=== PATIENT | female | born 1940 | race Caucasian/White ===

== ENCOUNTER → 2017-06-20 | Outpatient (CLI) | payer MEDICARE, OTHER ==
[~2017-06-20] MED LIST: ADVA100A INH; ASPI81TA23 PO; CALC1TAB87 PO; CELE200C PO; CINN500C2 PO; GLUC500T4 PO; GLUCTAB6 PO; KRIL1CAP15 PO; LEVO.1 PO; LEVO100T4 PO; LUTE20CA PO; MIRA0.5T PO; MONT10TA2 PO; MULTTAB67 PO; NEXI40CA PO; NORC7.5T PO; PRIS50TA PO; PROT40TA PO; SIMV20 PO; SYMB80AE INH; VIIB40TA PO; XARE10TA PO; ZOCO20TA PO
[2017-06-20 14:03] LABS: AUTOMATED NEUTROPHIL # 4.1 TH/MM3 (1.8-7.7); BASOPHIL % 0.7 % (0.0-2.0); EOSINOPHIL # 0.2 TH/MM3 (0-0.4); HEMATOCRIT 35.5 % (35.0-46.0); HEMOGLOBIN 12.1 GM/DL (11.6-15.3); LYMPH % 22.6 % (9.0-44.0); LYMPHOCYTE # 1.4 TH/MM3 (1.0-4.8); MEAN CELL VOLUME 87.2 FL (80.0-100.0); MEAN CORPUSCULAR HEMOGLOBIN 29.7 PG (27.0-34.0); MEAN CORPUSCULAR HGB CONC 34.1 % (32.0-36.0); MEAN PLATELET VOLUME 7.9 FL (7.0-11.0); MONO % 8.5 % (0.0-8.0); MONOCYTE # 0.5 TH/MM3 (0-0.9); NEUT % 65.2 % (16.0-70.0); PLATELET COUNT 252 TH/MM3 (150-450); RED BLOOD COUNT 4.07 MIL/MM3 (4.00-5.30); RED CELL DISTRIBUTION WIDTH 13.8 % (11.6-17.2); WHITE BLOOD COUNT 6.3 TH/MM3 (4.0-11.0)
[2017-06-20 14:06] LABS: BACTERIA, URINE RARE /hpf; BILIRUBIN, URINE NEG (NEG); BLOOD, URINE NEG (NEG); GLUCOSE,URINE NEG (NEG); KETONE, URINE NEG (NEG); MUCUS URINE FEW /lpf (OCC); NITRITE,URINE NEG (NEG); URINE COLOR YELLOW (YELLW/STRAW); URINE LEUKOCYTE ESTERASE TRACE (NEG)
[2017-06-20 14:10] LABS: PROTHROMBIN TIME - PATIENT 10.5 SEC (9.8-11.6)
[2017-06-20 14:34] LABS: ALBUMIN 3.5 GM/DL (3.4-5.0); AST (GOT) 21 U/L (15-37); BICARBONATE 29.2 MEQ/L (21.0-32.0); BLOOD UREA NITROGEN 30 MG/DL (7-18); CALCIUM 9.2 MG/DL (8.5-10.1); CHLORIDE 108 MEQ/L (98-107); CREATININE 1.21 MG/DL (0.50-1.00); GLOMERULAR FILTRATION RATE 43 ML/MIN (>89); GLUCOSE,FASTING 77 MG/DL (74-99); SODIUM (NA) 142 MEQ/L (136-145)
[2017-06-20 14:37] LABS: ALKALINE PHOSPHATASE 78 U/L (45-117); ALT (GPT) 15 U/L (10-53); TOTAL BILIRUBIN ADULT 0.2 MG/DL (0.2-1.0); TOTAL PROTEIN 7.1 GM/DL (6.4-8.2)
[2017-06-20 15:01] LABS: WESTERGREN SEDIMENTATION RATE 39 mm/hr (0-30)
== END ==
LOC: CPRE 13:10
PROVIDERS: ATTEND Orthopaedic Surgery Sports Medicine
DX: Z01.812 Encounter for preprocedural laboratory examination (principal); M25.50 Pain in unspecified joint; M17.11 Unilateral primary osteoarthritis, right knee; Z79.01 Long term (current) use of anticoagulants
CPT/HCPCS: 36415; 80053; 81001; 85025; 85610; 85652; 85730

== ENCOUNTER 2017-07-04 07:34 | Inpatient (IN) | payer MEDICARE, OTHER ==
[~2017-07-04] VITALS: Ht 162.6 cm; Wt 73.8 kg
[~2017-07-04 07:34] MED LIST changes: -GLUCTAB6 PO; -LEVO100T4 PO; -NEXI40CA PO; -NORC7.5T PO; -SIMV20 PO; -SYMB80AE INH; -VIIB40TA PO; -XARE10TA PO
[2017-07-04] MEDS ORDERED: ROPIVACAINE PERI-ARTICULAR INJECTION. P-ARTICULR SCH ×5 (08:00)
[2017-07-04] MEDS ORDERED: VANCOMYCIN 1000 MG/NS 250 ML (for <70 kg) IV SCH ×2 (08:00)
[2017-07-04] MEDS ORDERED: SODIUM CHLORID 0.9% 500 ML IV PRN (08:00)
[2017-07-04] MEDS ORDERED: METOPROLOL TARTRATE 25 MG TAB PO PRN (08:00)
[2017-07-04] MEDS ORDERED: POVIDONE IODINE 7.5% SCRUB 118 ML BOTTLE TOPICAL SCH (08:00)
[2017-07-04] MEDS ORDERED: CHLORHEXIDINE GLUCONATE 2 % 1 PACK (2 CLOTHS) TOPICAL PRN (08:00)
[2017-07-04] MEDS ORDERED: POVIDONE IODINE 5% (ANTISEPSIS KIT) 4 APPLICATIONS EACH NARE PRN (08:00)
[2017-07-04] MEDS ORDERED: LACTATED RINGER'S 1000 ML IV PRN (08:00)
[2017-07-04] MEDS ORDERED: CHLORHEXIDINE GLUCONATE 4% SOLN 120 ML BTL TOPICAL SCH (08:00)
[2017-07-04] MEDS ORDERED: ceFAZolin 2 GM PREMIX 50 ML IV SCH (08:00)
[2017-07-04] MEDS ORDERED: TRANEXAMIC PERI-ARTICULAR 3,000 MG/NS 100 ML P-ARTICULR SCH ×2 (08:00)
[2017-07-04] MEDS ORDERED: DEXAMETHASONE SOD PHOS 4 MG/ML VIAL IV SCH (08:15)
[2017-07-04] MEDS ORDERED: TRANEXAMIC ACID INJ 1,107 MG in SODIUM CHLORIDE 0.9% INJ 100 ML IV SCH (09:00)
[2017-07-04] MEDS ORDERED: BUPIVACAINE LIPOSOME PF 1.3% 20 ML VIAL ONE (09:31)
[2017-07-04] MEDS ORDERED: MIDAZOLAM HCL 2 MG/2 ML VIAL ONE (09:32)
[2017-07-04] MEDS ORDERED: ASPI81CH6 CHEW (10:11)
[2017-07-04] MEDS ORDERED: HYDR-3288 PO (10:11)
[2017-07-04] MEDS ORDERED: GENTAMICIN SULFATE 80 MG/2 ML VIAL ONE (10:33)
[2017-07-04] MEDS ORDERED: ACETAMINOPHEN 1000 MG/100 ML 100 ML IV ONE (10:44)
[2017-07-04] MEDS ORDERED: PROPOFOL 200 MG/20 ML AMP IV ONE (12:00)
[2017-07-04] MEDS ORDERED: PHENYLEPH/NS 1000 MCG/10 ML SYR IV ONE (12:00)
[2017-07-04] MEDS ORDERED: GLYCOPYRROLATE 1 MG/5 ML SYRINGE IV PUSH ONE (12:00)
[2017-07-04] MEDS ORDERED: NEOSTIGMINE 5 MG/5 ML SYRINGE IV PUSH ONE (12:00)
[2017-07-04] MEDS ORDERED: LIDOCAINE HCL 1% PF 5 ML SYRINGE OTHER ONE (12:00)
[2017-07-04] MEDS ORDERED: ROCURONIUM INJ 50 MG/5 ML SYRINGE IV PUSH ONE (12:00)
[2017-07-04] MEDS ORDERED: ONDANSETRON HCL 4 MG/2 ML VIAL IV ONE (12:00)
[2017-07-04] MEDS ORDERED: ACETAMINOPHEN/HYDROcodone 325 MG/7.5 MG TAB PO PRN (12:30)
[2017-07-04] MEDS: SODIUM CHLOR 0.9% 1000 ML INJ 1,000 ML IV SCH ×2 (12:45→22:45)
[2017-07-04] MEDS ORDERED: diphenhydrAMINE HCL 50 MG/ML VIAL IV PUSH PRN (12:45)
[2017-07-04] MEDS ORDERED: DO NOT ADM ANY ANTICOAGULANT DRUGS PRN (12:56)
[2017-07-04] MEDS ORDERED: Post-op Orders (for Pharmacy) XX ONE (13:00)
[2017-07-04] MEDS ORDERED: ONDANSETRON HCL 4 MG/2 ML VIAL IVP PRN (13:00)
[2017-07-04] MEDS ORDERED: *morphine SULFATE 4 MG/ML PERIprocedure ONLY ONE ×3 (13:06→13:26)
[2017-07-04] MEDS ORDERED: MORPHINE SULFATE 4 MG/ML INJ IV PUSH PRN (13:30)
--- NOTE | 2017-07-04 13:38 | RADRPT ---
EXAM DATE/TIME: 07/04/2017 13:14 [place] COMPARISON: No previous studies available for comparison. INDICATIONS : Post knee replacement. MEDICAL HISTORY : No pertinent medical history SURGICAL HISTORY : Total knee replacement, right. ENCOUNTER: Initial ACUITY: 1 day PAIN SCORE: 2/10 LOCATION: Right knee. FINDINGS: The patient is status post right total knee arthroplasty. The tibial femoral components appear well s eated. Surgical drain and subcutaneous air are noted consistent with postsurgical changes. CONCLUSION: Postsurgical changes are noted. Tucker Bloom MD on July 04, 2017 at 13:36 Board Certified Radiologist. This report was verified electronically.
[2017-07-04] MEDS ORDERED: BISACODYL 10 MG SUPP RECTAL PRN (14:00)
[2017-07-04] MEDS ORDERED: cloNIDine HCL 0.1 MG TAB PO PRN (14:30)
[2017-07-04 14:57] VITALS: O2SAT 98
[2017-07-04] MEDS: ACETAMINOPHEN/HYDROcodone 325 MG/7.5 MG TAB PO PRN ×3 (15:30→23:35)
--- NOTE | 2017-07-04 15:47 | PD.CONS ---
[facility] Consult Requested By Dr. Osei Reason for Consult Medical management Primary Care Physician Khoa Vazquez DO Diagnoses: History of Present Illness The pt is a 76 year old female with a past medical history of osteoarthritis, COPD and sarcoidosis who is presenting to the hospital for an elective right knee replacement. The patient states that she has had problems with her right knee for the past 2 years. She was told that it was bone on bone. She has been limping around and has not been using a cane or a walker. She says that walking around like this has been putting on more strain on her left knee. She has been taking Celebrex and tramadol as needed for pain. The patient says that she had a partial left knee replacement which did not work. She followed up with Dr. Osei who performed a left knee replacement that did work. The patient was seen following surgery and reports pain at a level of 4 out of 10. She does not have much of an appetite at this time. She did great with physical therapy. She denies any constipation, diarrhea or dysuria. She denies shortness of breath. She is looking forward to going home tomorrow. Review of Systems Except as stated in HPI: all other systems reviewed are Neg Past Family Social History Allergies: Coded Allergies: No Known Allergies (Verified Allergy, Unknown, 07/04/17) Past Medical History Osteoarthritis Sarcoidosis COPD Hypothyroidism Past Surgical History Partial left knee replacement Total left knee replacement Hysterectomy Active Ordered Medications Current Medications Medications (Trade) Dose Ordered Sig/[place] Route Start Time Stop Time Status Last Admin Lactated Ringer's 1,000 ml @ 30 mls/hr Q24H PRN IV 07/04/17 08:00 07/07/17 07:59 07/04/17 08:30 Sodium Chloride 500 ml @ 30 mls/hr [id number] PRN IV 07/04/17 08:00 07/07/17 07:59 (Lopressor) 25 mg LOG CHECK SCALER PRN PO 07/04/17 08:00 07/07/17 07:59 (Betadine 5% Antisepsis Kit) 1 applic LOG CHECK SCALER PRN EACH NARE 07/04/17 08:00 07/07/17 07:59 07/04/17 08:45 (Chlorhexidine 2% Cloth) 3 pack LOG CHECK SCALER PRN TOPICAL 07/04/17 08:00 07/07/17 07:59 3/2/18 08:30 (Betadine 7.5% Scrub) 1 applic ONCE TOPICAL 07/04/17 08:00 07/07/17 07:59 (Hibiclens 4% Top Soln) 1 applic ONCE TOPICAL 07/04/17 08:00 07/07/17 07:59 Cefazolin Sodium/ Dextrose 50 ml @ 100 mls/hr LOG CHECK SCALER IV 07/04/17 08:00 07/07/17 07:59 07/04/17 10:52 Vancomycin HCl 1000 mg/Sodium Chloride 250 ml @ 250 mls/hr LOG CHECK SCALER IV 07/04/17 08:00 07/07/17 07:59 07/04/17 10:33 (Decadron Inj) 10 mg LOG CHECK SCALER IV 07/04/17 08:15 07/04/17 23:59 07/04/17 08:45 Tranexamic Acid 1107 mg/Sodium Chloride 111.07 ml @ 200 mls/ hr ONCE IV 07/04/17 09:00 07/05/17 08:59 07/04/17 11:04 (Synthroid) 100 mcg DAILY@0600 PO 07/05/17 06:00 (Singulair) 10 mg HS PO 07/04/17 21:00 (Protonix) 40 mg DAILY PO 07/05/17 09:00 (Mirapex) 0.5 mg HS PO 07/04/17 21:00 Patient Own Medication PT OWN MED: PRISTIQ (DESVENLAFAX... DAILY PO 07/05/17 09:00 Future Hold (Pravachol) 40 mg HS PO 07/04/17 21:00 Sodium Chloride 1,000 ml @ 100 mls/hr Q10H IV 07/04/17 12:45 07/04/17 12:45 Cefazolin Sodium 1000 mg/Sodium Chloride 100 ml @ 200 mls/hr Q6H IV 07/04/17 17:00 07/05/17 05:29 (Lovenox Inj) 40 mg Q24H SQ 07/05/17 12:00 (Morphine Inj) 3 mg Q3H PRN IV PUSH 07/04/17 13:30 ([place] 7.5-325 Mg) 1 tab Q4H PRN PO 07/04/17 12:30 07/04/17 15:30 ([place] 7.5-325 Mg) 2 tab Q4H PRN PO 07/04/17 12:30 (Theragran M Tab) 1 tab BID PO 07/05/17 21:00 09/03/17 20:59 (Zofran Inj) 4 mg Q6H PRN IVP 07/04/17 13:00 (Colace) 100 mg BID PO 07/05/17 21:00 (Ambien) 5 mg HS PRN PO 07/04/17 21:00 (Dulcolax Supp) 10 mg DAILY PRN RECTAL 07/04/17 14:00 (Benadryl Inj) 25 mg Q6H PRN IV PUSH 07/04/17 12:45 (Catapres) 0.1 mg Q6H PRN PO 07/04/17 14:30 Miscellaneous Information ALL NURSING DEPARTME... UNSCH PRN .XX 07/04/17 12:56 07/05/17 12:55 Family History Angina Hypertension Social History The patient does not smoke but lived with a smoker for a long time. No alcohol or drug use. She lives in [place]. Physical Exam Vital Signs Vital Signs Date Time Temp Pulse Resp B/P (MAP) Pulse Ox O2 Delivery O2 Flow Rate FiO2 07/04/17 14:57 98 Nasal Cannula 2.00 07/04/17 14:57 66 16 131/60 (83) 99 Nasal Cannula 2 07/04/17 13:15 63 16 152/72 (98) 98 Nasal Cannula 2 07/04/17 13:00 76 16 148/58 (88) 96 Nasal Cannula 2 07/04/17 12:56 97.6 76 16 145/72 (96) 96 Nasal Cannula 2 07/04/17 08:35 98.3 63 18 139/76 (97) 98 Physical Exam GENERAL: This is a well-nourished, well-developed patient, in no apparent distress. SKIN: No rashes, ecchymoses or lesions. Cool and dry. HEAD: Atraumatic. Normocephalic. No temporal or scalp tenderness. EYES: Pupils equal round and reactive. Extraocular motions intact. No scleral icterus. No injection or drainage. ENT: Nose without bleeding, purulent drainage or septal hematoma. Throat without erythema, tonsillar hypertrophy or exudate. Uvula midline. Airway patent. NECK: Trachea midline. No JVD or lymphadenopathy. Supple, nontender, no meningeal signs. CARDIOVASCULAR: Regular rate and rhythm without murmurs, gallops, or rubs. RESPIRATORY: Mild expiratory wheezing appreciated. GASTROINTESTINAL: Abdomen soft, non-tender, nondistended. No hepato-splenomegaly , or palpable masses. No guarding. MUSCULOSKELETAL: Right lower extremity is bandaged. NEUROLOGICAL: Awake and alert. Cranial nerves II through XII intact. Motor and sensory grossly within normal limits. Five out of 5 muscle strength in all muscle groups. Normal speech. PSYCH: Mood and affect appropriate. Imaging Last Impressions Knee X-Ray 07/04/17 1009 Signed Impressions: Service Date/Time: Tuesday, July 04, 2017 13:14 - CONCLUSION: Postsurgical changes are noted. Tucker Bloom MD Assessment and Plan Assessment and Plan Severe osteoarthritis The patient is status post right total knee replacement. She tolerated the procedure well. - Wound care, weightbearing and anticoagulation per orthopedic surgery. - Physical therapy. - Incentive spirometry. - Pain control with a bowel regimen. - Follow CBC and transfuse as needed. COPD/sarcoidosis Respiratory status is stable at this time. - Oxygen and nebs as needed. - Encourage ambulation. Hypertension Blood pressure is exacerbated by pain. - Pain control. - Vasotec as needed. Renal insufficiency Recent labs demonstrated a creatinine of 1.21. - Check BMP in the morning. - Avoid nephrotoxic agents. PPx: Per orthopedic surgery Discussed Condition With Patient, patient's family Cristian Gibbons DO Jul 04, 2017 15:47
[2017-07-04 15:59] VITALS: BP 121/65; PULSE 64; RESP 17; TEMP 96.9; O2SAT 93
--- NOTE | 2017-07-04 16:16 | HHI.DCPOC ---
Discharge Care Plan Diagnosis: (1) Primary localized osteoarthrosis, lower leg Your Health Problems Are: Difficulty with ADL Goals to Promote Your Health * To prevent worsening of your condition and complications * To maintain your health at the optimal level Directions to Meet Your Goals Take your medications as prescribed Follow your dietary instruction Follow activity as directed Keep your appointments as scheduled Take your immunizations and boosters as scheduled If your symptoms worsen call your PCP, if no PCP go to Urgent Care Center or Emergency Room Smoking is Dangerous to Your Health. Avoid second hand smoke Call the 24-hour hour crisis hotline for domestic abuse at Celso Frost Jul 04, 2017 16:16
--- NOTE | 2017-07-04 16:17 | HHI.FF ---
Face to Face Verification Diagnosis: (1) Primary localized osteoarthrosis, lower leg Physical Therapy Gait training, Safety evaluation, Transfer training, bed to chair Knee: Total knee, Protocol: Right, Full weight bearing Right LE Weight Bearing: WB as tolerated Nursing RN: 3 days/week x 2 weeks Nursing: Dressing changes Dressing Changes: Daily dressing change I have seen patient Caryn Walter on 07/04/17. My clinical findings support the need for the requested home health care services because: Limited ability to care for self High risk of falls I certify that my clinical findings support that this patient is homebound because: Post-op weakness Unsteady gait/balance Celso Frost Jul 04, 2017 16:17
[2017-07-04] MEDS ORDERED: WALKER WHEELS/F1 MIS (16:18)
[2017-07-04] MEDS ORDERED: CPMMACHINE (16:18)
--- NOTE | 2017-07-04 16:19 | PD.ORT.PN ---
Objective Vitals Vital Signs Date Time Temp Pulse Resp B/P (MAP) Pulse Ox O2 Delivery O2 Flow Rate FiO2 07/04/17 15:59 96.9 64 17 121/65 (83) 93 07/04/17 14:57 98 Nasal Cannula 2.00 07/04/17 14:57 66 16 131/60 (83) 99 Nasal Cannula 2 07/04/17 13:15 63 16 152/72 (98) 98 Nasal Cannula 2 07/04/17 13:00 76 16 148/58 (88) 96 Nasal Cannula 2 07/04/17 12:56 97.6 76 16 145/72 (96) 96 Nasal Cannula 2 07/04/17 08:35 98.3 63 18 139/76 (97) 98 I/O 07/03/17 07/03/17 07/03/17 07/04/17 07/04/17 07/04/17 07:00 15:00 23:00 07:00 15:00 23:00 Intake Total 950 ml 100 ml Output Total 600 ml Balance 350 ml 100 ml Intake IV Total 100 ml Other 950 ml Output Urine Total 400 ml Estimated Blood Loss 200 ml Imaging Last 24 hours Impressions Knee X-Ray 07/04/17 1009 Signed Impressions: Service Date/Time: Tuesday, July 04, 2017 13:14 - CONCLUSION: Postsurgical changes are noted. Tucker Bloom MD Assessment & Plan Ortho Post Op Day #: 0 Problem List: Assessment and Plan s/p R TKA POD#0 wbat ok to maintain dressing unless saturated lovenox, d/c on [id number] d/c planning home vs snf rx in chart f/up dr. orozco 2 weeks Celso Frost Jul 04, 2017 16:19
--- NOTE | 2017-07-04 18:26 | MP ---
cc: Celso Osei MD DATE OF OPERATION: PREOPERATIVE DIAGNOSIS: Right knee osteoarthritis. POSTOPERATIVE DIAGNOSIS: Right knee osteoarthritis. PROCEDURE: Right total knee arthroplasty. SURGEON: Celso Osei MD DROP HAMMER OPERATOR HELPER: AI Vidal ANESTHESIA: General with a femoral nerve adductor canal block. ESTIMATED BLOOD LOSS: 200 mL. TOURNIQUET TIME: 21 minutes at 250 mmHg. COMPLICATIONS: None. IMPLANTS USED: DePuy Attune size 5 posterior stabilized femoral component, size 4 rotating flap from tibia baseplate, size 7 mm polyethylene tibial component, size 35 patella. JUSTIFICATION: This patient is a 76-year-old female with history of severe end-stage osteoarthritis involving the right knee. She has severe disabling pain with standing, walking, ambulation, weightbearing activities and severe pain at rest. She has failed greater than 3 months of nonoperative conservative treatment to include medication therapy, injections, ambulatory assistive aids, home exercise program, activity modification and weight loss attempts. X-rays of the right knee reveal severe end-stage osteoarthritis with [id number] joint space narrowing, subchondral sclerosis, subchondral osteophyte formation with varus deformity. The patient was counseled on risks, benefits and alternatives to a total knee arthroplasty. The risks were discussed, which include but are not limited to anesthesia, bleeding, infection, damage to nerves, blood vessels ,pain, stiffness, failure of a component, blood clots, pulmonary embolism and even . Patient's pain is severe. She favors the benefits over the risks and did wish to proceed with surgery. PROCEDURE IN DETAIL: Written consent was obtained. Patient was identified by name, taken to operating room, placed supine on the operating table. General anesthesia was administered as well as 2 g of IV Ancef, 1 g of IV vancomycin She did receive preoperative adductor canal femoral nerve block. A well-padded tourniquet was placed on the right thigh. The right lower extremity prepped and draped using isopropyl alcohol, Hibiclens solution and ChloraPrep solution. After a timeout was performed, an Esmarch bandage was used to exsanguinate the right lower extremity. The tourniquet was inflated to 250 mmHg. A longitudinal incision was made over the anterior aspect of the right knee, a medial parapatellar arthrotomy was performed and the patella was everted. Patellar resection guide was used to resect 7 mm of patella. A size 35 mm guide was placed. Three drill holes were placed and the 35 mm trial fit well. Attention was turned to the femur, where an intramedullary guidewire was placed and the distal femoral guide was set to remove 10 mm of distal femur, 5 degrees off the anatomic valgus axis alignment. An oscillating saw was used to perform the distal femoral cut. Attention was turned to the tibia, where the extramedullary tibial guide was set to remove 6 mm of the lowest portion of the medial tibial plateau. Tibial guide was pinned in place and tibia cut was performed. A 5 mm spacer block showed full extension. Attention was turned back to the femur. The AP sizing block measured a size 5. The anterior reference 3 degree external rotation guide was used to pin a size [address] The anterior and posterior chamfer cuts were performed. A size 5 PCL box guide was pinned in place and the PCL was box cut with an oscillating saw. The medial and lateral meniscus remnants were removed, as well as bone and soft tissues debris from the posterior portion of the knee. A size 4 tibial baseplate was pinned in place and tibia was drilled and punched. Trial components were evaluated and final components cemented into place. With the current components, the leg could achieve full extension to zero degrees and flexion to 140. No evidence of tibial liftoff. Varus-valgus balance appeared appropriate and symmetric, and the patella was noted to track centrally. With the tourniquet deflated, Bovie cautery was used for hemostasis. Surgical wound was sterilely irrigated with sterile saline pulse lavage antibiotic impregnated solution. The arthrotomy incision was closed with #1 Vicryl suture, subcutaneous layer with 2-0 Vicryl suture, skin incision closed with Dermabond. Sterile dressings were applied. The patient tolerated the procedure well with no intraoperative complications noted. Bharat Frost, physician interior design assistant, certified assisted throughout entire procedure to include patient positioning and the procedure itself. The medical necessity of a physician interior design assistant was indicated in this case due to complexity of the procedure. He assisted with appropriate manipulation of the leg and also retraction of muscle, tendon, bone and neurovascular structures. He assisted with preparation of bone and also implantation of the prosthetic replacement. MD RUTHANN Toney/KATI , 12:35 PM , 06:25 PM
[2017-07-04 20:00] VITALS: BP 114/56; PULSE 65; RESP 16; TEMP 97.5; O2SAT 95
[2017-07-04] MEDS ORDERED: MONTELUKAST SODIUM 10 MG TAB PO SCH (21:00)
[2017-07-04] MEDS ORDERED: ZOLPIDEM TARTRATE 5 MG TAB PO PRN (21:00)
[2017-07-04] MEDS ORDERED: PRAMIPEXOLE DIHYDROCHLORIDE 0.25 MG TAB PO SCH (21:00)
[2017-07-04] MEDS ORDERED: PRAVASTATIN SOD 40 MG TAB PO SCH (21:00)
[2017-07-05] VITALS: BP 122/58; PULSE 63; RESP 16; TEMP 98.9; O2SAT 95
[2017-07-05 04:00] VITALS: BP 109/56; PULSE 63; RESP 16; TEMP 97.4; O2SAT 95
[2017-07-05] MEDS: ACETAMINOPHEN/HYDROcodone 325 MG/7.5 MG TAB PO PRN ×3 (04:42→12:05)
[2017-07-05] MEDS ORDERED: LEVOTHYROXINE SODIUM 100 MCG TAB PO SCH (06:00)
[2017-07-05 07:01] LABS: HEMATOCRIT 28.5 % (35.0-46.0); HEMOGLOBIN 9.9 GM/DL (11.6-15.3); MEAN CELL VOLUME 87.2 FL (80.0-100.0); MEAN CORPUSCULAR HEMOGLOBIN 30.3 PG (27.0-34.0); MEAN CORPUSCULAR HGB CONC 34.8 % (32.0-36.0); MEAN PLATELET VOLUME 8.4 FL (7.0-11.0); PLATELET COUNT 215 TH/MM3 (150-450); RED BLOOD COUNT 3.27 MIL/MM3 (4.00-5.30); RED CELL DISTRIBUTION WIDTH 13.5 % (11.6-17.2); WHITE BLOOD COUNT 10.6 TH/MM3 (4.0-11.0)
[2017-07-05 07:27] LABS: BICARBONATE 27.9 MEQ/L (21.0-32.0); CALCIUM 8.4 MG/DL (8.5-10.1); CREATININE 1.32 MG/DL (0.50-1.00)
[2017-07-05 08:00] VITALS: BP 115/58; PULSE 59; RESP 17; TEMP 97.8; O2SAT 96
[2017-07-05] MEDS: SODIUM CHLOR 0.9% 1000 ML INJ 1,000 ML IV SCH (08:27)
[2017-07-05] MEDS ORDERED: PANTOPRAZOLE SOD 40 MG DELAYED RELEASE TAB PO SCH (09:00)
[2017-07-05] MEDS ORDERED: DESVENLAFAXINE PO SCH (09:00)
[2017-07-05 10:02] VITALS: O2SAT 98
[2017-07-05 12:00] VITALS: BP 110/58; PULSE 57; RESP 17; TEMP 98.9; O2SAT 95
[2017-07-05] MEDS ORDERED: ENOXAPARIN SODIUM 40 MG/0.4 ML SYRINGE SQ SCH (12:00)
[2017-07-05] MEDS ORDERED: DOCUSATE SODIUM 100 MG CAP PO SCH (21:00)
[2017-07-05] MEDS ORDERED: MULTIVITAMINS/MINERALS THERAPEUTIC TAB PO SCH (21:00)
== END 2017-07-05 15:20 | disposition home health service (06) | DRG 470 ==
LOC: HSDC 07:34 → HSDI 10:10 → N06B 14:50
PROVIDERS: ADMIT Orthopaedic Surgery Sports Medicine; ATTEND Orthopaedic Surgery Sports Medicine
PROC: 3E0T3BZ Introduction of Anesthetic Agent into Peripheral Nerves and Plexi, Percutaneous Approach (ICD-10-PCS; 2017-07-04)
PROC: 0SRC0J9 Replacement of Right Knee Joint with Synthetic Substitute, Cemented, Open Approach (ICD-10-PCS; principal; 2017-07-04 10:58)
DX: M17.11 Unilateral primary osteoarthritis, right knee (principal); J44.9 Chronic obstructive pulmonary disease, unspecified; I10 Essential (primary) hypertension; E78.5 Hyperlipidemia, unspecified; E03.9 Hypothyroidism, unspecified; D86.9 Sarcoidosis, unspecified; N28.9 Disorder of kidney and ureter, unspecified; Z96.652 Presence of left artificial knee joint; Z77.22 Contact with and (suspected) exposure to environmental tobacco smoke (acute) (chronic)
CPT/HCPCS: 73560; 80048; 85027; 86850; 86900; 86901; 94150; C1776; C9290; J0131; J0690; J0735; J1100; J1580; J1650; J1885; J2250; J2270; J2370; J2405; J2710; J2795; J3010; J3370; J7030; J7050; J7120; L1830